=== PATIENT | female | born 1955 | race Asian ===

== ENCOUNTER 2019-01-06 12:13 | Day surgery (SDC) | payer OTHER ==
[~2019-01-06] VITALS: Ht 152.4 cm; Wt 50.6 kg
--- NOTE | 2019-01-06 13:46 | PREAC ---
Date/Time of Note Date/Time of Note DATE: 01/06/19 TIME: 13:44 Anesthesia Eval and Record Evaluation Time Pre-Procedure Interview DATE: 01/06/19 TIME: 13:44 Age 63 Sex female NPO: 8 hrs Preoperative diagnosis fecal abnormalities Planned procedure egd abn colonoscopy Past Medical History Past Medical History: Includes Cardio: Dyslipidemia Pulm: Smoking Hx Surgery & Anesthesia Issues No known issue Meds Anticoagulation: No Beta Alex within 24 hr: No Reason Beta Alex not given: Pt. not on B-Alex Meds reviewed: Yes Allergies Allergies Reviewed: Yes Labs/Studies Labs Reviewed: Reviewed by anesthesiologist test: N/A Pre-procedure Exam Airway: Adequate mouth opening, Adequate thyromental dist Mallampati: Mallampati IV Teeth: Normal Lung: Normal Heart: Normal ASA Physical Status ASA physical status: 2 Emergency: None Pre-operative Attestations Prior to commencing anesthesia and surgery, the patient was re-evaluated, there was verification of: *The patient's identity *The results of appropriate recent lab work and preoperative vital signs *The above evaluation not changing prior to induction *Anesthetic plan, risk benefits, alternative and complications discussed with patient/family; questions answered; patient/family understands, accepts and wishes to proceed. SERA JANSEN DO Jan 06, 2019 13:46
[2019-01-06 13:52] VITALS: Ht 152.4 cm; Wt 50.6 kg
[2019-01-06 13:58] VITALS: BP 145/67; PULSE 77; RESP 17
[2019-01-06] MEDS ORDERED: atorvastatin PO (13:59)
[2019-01-06] MEDS ORDERED: FENTAnyl 50 MCG/ML VIAL ONE (14:17)
[2019-01-06] MEDS ORDERED: ETOMIDATE 20 MG INJ ONE ×2 (14:17→14:18)
[2019-01-06] MEDS ORDERED: MIDAZOLAM 1 MG/ML 2 ML INJ ONE (14:17)
[2019-01-06] MEDS ORDERED: PROPOFOL 20 ML ONE (14:17)
[2019-01-06] MEDS ORDERED: LIDOCAINE 2% (SDV) 5 ML INJ ONE (14:17)
--- NOTE | 2019-01-06 15:00 | PAC ---
Date/Time of Note Date/Time of Note DATE: 01/06/19 TIME: 14:59 Post-Anesthesia Notes Post-Anesthesia Note Last documented vital signs 95/69 65 15 99% Activity: WNL Respiratory function: WNL Cardiovascular function: WNL Mental status: Baseline Pain reasonably controlled: Yes Hydration appropriate: Yes Nausea/Vomiting absent: Yes SERA JANSEN DO Jan 06, 2019 15:00
[2019-01-06 15:24] VITALS: BP 127/67; RESP 20
== END 2019-01-06 17:20 | disposition home or self-care (01) ==
LOC: GIL 12:13
PROVIDERS: ATTEND Internal Medicine Gastroenterology
DX: R19.5 Other fecal abnormalities (principal); K25.7 Chronic gastric ulcer without hemorrhage or perforation; K29.30 Chronic superficial gastritis without bleeding; K64.1 Second degree hemorrhoids
CPT/HCPCS: 43239; 45378; 88305; 88312; J2250; J3010; Z7610